=== PATIENT | female | born 1965 | race Caucasian/White ===

== ENCOUNTER 2018-12-02 07:46 | Inpatient (IN) | payer BC, OTHER ==
[2018-11-24 15:51] LABS: BASOPHILS # (AUTO) 0.1 X10'3 (0-0.2); EOSINOPHILS # (AUTO) 0.1 X10'3 (0-0.9); EOSINOPHILS % (AUTO) 1.4 % (0-6); LYMPHOCYTES # (AUTO) 2.5 X10'3 (1.1-4.8); LYMPHOCYTES % (AUTO) 30.8 % (21-51); MEAN CORPUSCULAR HEMOGLOBIN 26.7 PG (27.0-31.0); MEAN CORPUSCULAR HGB CONC 33.8 g/dL (33.0-36.5); MEAN PLATELET VOLUME 7.5 FL (7.4-10.4); MONOCYTES # (AUTO) 0.4 X10'3 (0-0.9); MONOCYTES % (AUTO) 5.6 % (2-12); NEUTROPHILS # (AUTO) 4.9 X10'3 (1.8-7.7); NEUTROPHILS % (AUTO) 61.2 % (42-75); PRE OP HEMATOCRIT 44.4 % (35.0-45.0); PRE OP PLATELET COUNT 349 X10'3 (140-440); RED BLOOD COUNT 5.62 X10'6 (4.20-5.60); RED CELL DISTRIBUTION WIDTH 13.9 % (11.5-14.5)
[2018-11-24 16:13] LABS: PRE OP PROTIME 10.1 SECONDS (9.0-12.0)
[2018-11-24 16:25] LABS: ALBUMIN 3.9 G/DL (3.4-5.0); ALBUMIN/GLOBULIN RATIO 1.1 (1.1-1.5); ALKALINE PHOSPHATASE 89 IU/L (46-116); BLOOD UREA NITROGEN 13 MG/DL (7-18); BUN/CREATININE RATIO 15.1 (6.6-38.0); CALCIUM 9.3 MG/DL (8.5-10.1); CHLORIDE 103 MMOL/L (99-107); CREATININE 0.86 MG/DL (0.40-0.90); PRE OP ALT 21 U/L (30-65); PRE OP ANION GAP 12 (8-16); PRE OP AST 14 U/L (10-37); PRE OP BILIRUB, TOTAL 0.5 MG/DL (0.0-1.0); PRE OP GLUCOSE 91 MG/DL (70-104); PRE OP POTASSIUM 3.9 MMOL/L (3.4-5.1); PRE OP SODIUM 140 MMOL/L (135-145); TOTAL CARBON DIOXIDE 24.6 MMOL/L (24-32); TOTAL PROTEIN 7.3 G/DL (6.4-8.2); eGFR 69 ML/MIN
[2018-12-02] VITALS (20 sets, daily range): BP systolic 86–138; BP diastolic 42–90
[~2018-12-02] VITALS: Ht 172.7 cm; Wt 97.1 kg
[~2018-12-02 07:46] MED LIST: CHOL400T14 PO; DULO-31 PO; IBUP-1594 PO; acetaminophen 325mg tablet PO ONE; cefazolin/dext.iso 2gm/50ml 100 ML IV ONE; famotidine 20mg tablet PO ONE; gabapentin 300mg capsule PO ONE; metoclopramide 5 mg/ml inj IV ONE; oxyCODONE SR 10mg (sust. release) tab -2 tabs (20mg) PO ONE; ringers solution, lacted 1,000 ML IV SCH; tranexamic acid inj. 1,000 MG in normal saline 100 ML IV ONE; vancomycin inj 1,500 MG in normal saline 300ml IV soln IV ONE
[2018-12-02] MEDS ORDERED: LIDOcaine 1% (10mg/ml) 2ml vial ONE (08:19)
[2018-12-02] MEDS ORDERED: ringers solution, lacted 1,000 ML IV SCH (08:44)
[2018-12-02] MEDS ORDERED: morphine 4 MG/ML inj SYRINge IV PRN ×2 (08:45)
[2018-12-02] MEDS ORDERED: ondansetron/PF 4mg/2ml inj IV PRN ×3 (08:45→14:40)
[2018-12-02] MEDS ORDERED: meperidine/PF 25mg/ml syringe IV PRN ×3 (08:45)
[2018-12-02] MEDS ORDERED: proCHLORperazine 10 MG/2 ml inj IV PRN (08:45)
[2018-12-02] MEDS ORDERED: vancomycin 1,000mg inj ONE (09:50)
[2018-12-02] MEDS ORDERED: ePHEDrine 50MG/ML INJ. ONE (10:35)
[2018-12-02] MEDS ORDERED: fentaNYL/PF 50MCG/1 ML 2ML syringe ONE (10:42)
[2018-12-02] MEDS ORDERED: MIDAZolam 1mg/ml 10ml vial ONE (10:42)
[2018-12-02] MEDS ORDERED: morphine /PF 1mg/ml 10ml inj. ONE (10:42)
[2018-12-02] MEDS: ceFAZolin 1000mg inj ONE ×2 (11:24→11:25)
[2018-12-02] MEDS ORDERED: phenylephrine 10mg/ml inj. ONE (11:38)
[2018-12-02] MEDS ORDERED: ROPIVAcaine 0.5% (5mg/ml) 30ml vial ONE ×2 (12:19→12:27)
[2018-12-02] MEDS ORDERED: bisacodyl 10mg suppository rectal RC PRN (12:45)
[2018-12-02] MEDS ORDERED: acetaminophen 325mg tablet PO PRN (12:45)
[2018-12-02] MEDS ORDERED: diphenhydrAMINE 25mg capsule PO PRN ×2 (12:45)
[2018-12-02] MEDS ORDERED: HYDROmorphone 1 mg/ml syringe IV PRN (12:45)
[2018-12-02] MEDS ORDERED: HYDROmorphone inj. 0.5 MG/0.5 ML DISP.SYRIN IV PRN (12:45)
[2018-12-02] MEDS ORDERED: magnesium hydroxide 30ml (MOM) UD suspension PO PRN (12:45)
--- NOTE | 2018-12-02 13:05 | NUR ---
Received from OR via BED , accompanied by Anesthesiologist and report given by Anesthesiolgist.PATIENT A&OX4, DENIES PAIN, V/S WNL, NEUROVASCULAR CHECKS INTACT, 18G PIV RUE , DRESSING TO RIGHT HIP CDI W/ COLD POWDER PACK AND W/ANNELISE AND W/ SCD ON. F/C DRAINING CLEAR YELLOW URINE. SENSATION L2.
--- NOTE | 2018-12-02 14:25 | NUR ---
PATIENT A&OX4, DENIES PAIN, V/S WNL, NEUROVASCULAR CHECKS INTACT, 18G PIV RUE , DRESSING TO RIGHT HIP CDI W/ COLD POWDER PACK AND W/ANNELISE AND W/ SCD ON. F/C DRAINING CLEAR YELLOW URINE. SENSATION L2. PATIENT TAKEN TO ORTHO WITH ALL BELONGINGS AND HOOKED UP TO MONITORS IN ROOM AND REPORT GIVEN TO FINISHED METAL REPAIRER WHO HAS TAKEN OVER PATIENT CARE.
[2018-12-02] MEDS ORDERED: naloxone 2mg/2ml inj 2 MG in normal saline 500ml IV soln 500 ML IV PRN (14:40)
[2018-12-02] MEDS ORDERED: diphenhydrAMINE 50 mg/ml inj IV PRN (14:40)
[2018-12-02] MEDS ORDERED: tranexamic acid inj. 1,000 MG in normal saline 100ml IV soln 100 ML IV ONE (15:45)
[2018-12-02] MEDS: gabapentin 300mg capsule PO SCH ×2 (16:17→20:45)
[2018-12-02] MEDS: ceFAZolin 1GM/D5W- ADD-VANTAGE 50 ML IV SCH ×2 (16:18→23:59)
[2018-12-02] MEDS: acetaminophen 325mg tablet PO SCH ×2 (16:18→20:45)
--- NOTE | 2018-12-02 17:26 | NUR ---
Was unable to hang tranexamic acid at the correct time due to pharmacy being late called [facility] and spoke to Nanda regarding this situation
--- NOTE | 2018-12-02 18:37 | NUR ---
Patient in room ORTHO 4013. I have received report from Joi MENDES and had the opportunity to ask questions and assume patient care.
[2018-12-02] MEDS: potassium cl 20mEq in 1/2 NS 1,000 ML IV SCH (18:42)
[2018-12-02] MEDS: enoxaparin 30mg/0.3ml syringe SQ SCH (19:51)
[2018-12-02] MEDS ORDERED: vancomycin/NS 1 GM ADD-VANTAGE 250 ML IV SCH (20:00)
[2018-12-02] MEDS: duloxetine 30mg CAPSULE.DR PO SCH (20:46)
[2018-12-02] MEDS: sennosides 8.6mg tablet PO SCH (20:46)
[2018-12-03 02:00] VITALS: BP 133/82
[2018-12-03] MEDS: acetaminophen 325mg tablet PO SCH ×4 (02:20→20:18)
[2018-12-03] MEDS: potassium cl 20mEq in 1/2 NS 1,000 ML IV SCH ×3 (04:26→19:21)
[2018-12-03] MEDS: oxyCODONE IR 5mg (immed. release) tablet PO PRN ×5 (05:23→21:29)
[2018-12-03 06:00] VITALS: BP 150/86
[2018-12-03] MEDS ORDERED: ROPIVACAINE IU ONE ×5 (06:00)
[2018-12-03] MEDS ORDERED: MORPHINE IU ONE ×5 (06:00)
[2018-12-03] MEDS ORDERED: [UNRECOGNIZED DRUG - OTHER] IU ONE ×5 (06:00)
[2018-12-03] MEDS ORDERED: KETOROLAC TROMETHAMINE IU ONE ×5 (06:00)
--- NOTE | 2018-12-03 06:30 | NUR ---
Patient in room ORTHO 4013. I have received report from Lima MENDES and had the opportunity to ask questions and assume patient care.
--- NOTE | 2018-12-03 06:32 | NUR ---
Problems reprioritized. Patient report given, questions answered & plan of care reviewed with Ember MENDES.
[2018-12-03] MEDS: gabapentin 300mg capsule PO SCH ×3 (07:54→20:19)
[2018-12-03] MEDS: cholecalciferol (vitamin D) 400 unit tablet PO SCH (07:54)
[2018-12-03] MEDS: enoxaparin 30mg/0.3ml syringe SQ SCH ×2 (07:55→20:18)
[2018-12-03] MEDS ORDERED: ibuprofen 200mg tablet PO SCH (08:00)
[2018-12-03 09:55] LABS: BASOPHILS # (AUTO) 0.1 X10'3 (0-0.2); BASOPHILS % (AUTO) 0.3 % (0-1); EOSINOPHILS % (AUTO) 0 % (0-6); HEMATOCRIT 40.5 % (35.0-45.0); HEMOGLOBIN 13.8 g/dl (12.0-16.0); LYMPHOCYTES # (AUTO) 0.9 X10'3 (1.1-4.8); LYMPHOCYTES % (AUTO) 5.7 % (21-51); MEAN CORPUSCULAR HEMOGLOBIN 27.2 PG (27.0-31.0); MEAN CORPUSCULAR VOLUME 80.1 FL (78-98); MONOCYTES # (AUTO) 0.9 X10'3 (0-0.9); MONOCYTES % (AUTO) 5.5 % (2-12); NEUTROPHILS # (AUTO) 14.8 X10'3 (1.8-7.7); NEUTROPHILS % (AUTO) 88.5 % (42-75); PLATELET COUNT 282 X10'3 (140-440); RED BLOOD COUNT 5.06 X10'6 (4.20-5.60); RED CELL DISTRIBUTION WIDTH 13.8 % (11.5-14.5); WHITE BLOOD COUNT 16.7 X10'3 (4.5-11.0)
[2018-12-03 10:00] VITALS: BP 109/64
[2018-12-03 10:14] LABS: ANION GAP 11 (8-16); CHLORIDE 103 MMOL/L (99-107); POTASSIUM 4.2 MMOL/L (3.5-5.1); SODIUM 138 MMOL/L (135-145); TOTAL CARBON DIOXIDE 24.3 MMOL/L (24-32)
[2018-12-03 11:24] LABS: PLATELET ESTIMATE NORMAL; TOTAL CELLS COUNTED 100
--- NOTE | 2018-12-03 15:24 | NUR ---
Joint replacement consult: Pt seen by TRAMAINE for written/verbal high protein ed. TRAMAINE reviewed high protein needs for wound healing, immune strength, high protein foods, and protein supplementation options. RD contact information provided in case of further questions. 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 Addendum: 12/03/18 at [address] Amended: Links added.
[2018-12-03 18:00] VITALS: BP 139/74
--- NOTE | 2018-12-03 18:12 | NUR ---
Problems reprioritized. Patient report given, questions answered & plan of care reviewed with Lima MENDES.
--- NOTE | 2018-12-03 18:19 | NUR ---
Patient in room ORTHO 4013. I have received report from Ember MENDES and had the opportunity to ask questions and assume patient care.
[2018-12-03] MEDS: celeCOXIB 100mg capsule PO SCH (20:18)
[2018-12-03] MEDS: duloxetine 30mg CAPSULE.DR PO SCH (20:19)
[2018-12-03] MEDS: sennosides 8.6mg tablet PO SCH (20:19)
[2018-12-03 22:00] VITALS: BP 124/74
[2018-12-04] MEDS: acetaminophen 325mg tablet PO SCH ×2 (02:12→09:00)
[2018-12-04] MEDS: oxyCODONE IR 5mg (immed. release) tablet PO PRN (05:25)
[2018-12-04 06:00] VITALS: BP 108/58
--- NOTE | 2018-12-04 06:26 | NUR ---
Problems reprioritized. Patient report given, questions answered & plan of care reviewed with Ember MENDES.
--- NOTE | 2018-12-04 06:30 | NUR ---
Patient in room ORTHO 4013. I have received report from Lima MENDES and had the opportunity to ask questions and assume patient care.
[2018-12-04] MEDS: enoxaparin 30mg/0.3ml syringe SQ SCH (08:00)
[2018-12-04] MEDS: celeCOXIB 100mg capsule PO SCH (08:59)
[2018-12-04] MEDS: gabapentin 300mg capsule PO SCH (08:59)
[2018-12-04] MEDS: cholecalciferol (vitamin D) 400 unit tablet PO SCH (09:00)
[2018-12-04 09:04] LABS: BASOPHILS # (AUTO) 0.1 X10'3 (0-0.2); BASOPHILS % (AUTO) 0.4 % (0-1); EOSINOPHILS # (AUTO) 0.2 X10'3 (0-0.9); EOSINOPHILS % (AUTO) 1.4 % (0-6); HEMATOCRIT 33.9 % (35.0-45.0); HEMOGLOBIN 11.7 g/dl (12.0-16.0); LYMPHOCYTES # (AUTO) 1.7 X10'3 (1.1-4.8); LYMPHOCYTES % (AUTO) 13.3 % (21-51); MEAN CORPUSCULAR HEMOGLOBIN 27.2 PG (27.0-31.0); MEAN CORPUSCULAR HGB CONC 34.5 g/dL (33.0-36.5); MEAN PLATELET VOLUME 7.6 FL (7.4-10.4); MONOCYTES % (AUTO) 7.8 % (2-12); NEUTROPHILS # (AUTO) 9.6 X10'3 (1.8-7.7); NEUTROPHILS % (AUTO) 77.1 % (42-75); PLATELET COUNT 257 X10'3 (140-440); RED BLOOD COUNT 4.29 X10'6 (4.20-5.60); RED CELL DISTRIBUTION WIDTH 13.9 % (11.5-14.5); WHITE BLOOD COUNT 12.5 X10'3 (4.5-11.0)
[2018-12-04] MEDS ORDERED: ASPI-1264 PO (09:32)
[2018-12-04] MEDS ORDERED: acetaminophen 325mg tablet PO PRN (12:45)
== END 2018-12-04 11:10 | disposition home or self-care (01) | DRG 470 ==
LOC: PAS IN 07:46 → EDSTATUS 11:00 → ORTHO 4S 14:30
PROVIDERS: ADMIT Orthopaedic Surgery; ATTEND Orthopaedic Surgery
PROC: 0SR906A Replacement of Right Hip Joint with Oxidized Zirconium on Polyethylene Synthetic Substitute, Uncemented, Open Approach (ICD-10-PCS; 2018-12-02)
PROC: 3E0T3BZ Introduction of Anesthetic Agent into Peripheral Nerves and Plexi, Percutaneous Approach (ICD-10-PCS; principal; 2018-12-02 10:40)
DX: M16.11 Unilateral primary osteoarthritis, right hip (principal); D62 Acute posthemorrhagic anemia; E66.9 Obesity, unspecified; F32.9 Major depressive disorder, single episode, unspecified; Z88.1 Allergy status to other antibiotic agents; Z88.8 Allergy status to other drugs, medicaments and biological substances; Z79.82 Long term (current) use of aspirin; Z90.710 Acquired absence of both cervix and uterus; Z86.14 Personal history of Methicillin resistant Staphylococcus aureus infection; Z68.32 Body mass index [BMI] 32.0-32.9, adult
CPT/HCPCS: 36415; 72170; 80051; 80053; 82948; 85025; 85610; 85730; 86885; 86900; 86901; 87070; 93005; 97110; 97116; 97161; 97530; A7000; C1758; C1776; C9250; G0378; J0171; J0690; J1650; J1885; J2250; J2274; J2370; J2405; J2765; J2795; J3010; J3370; J3490; J7030; J7120

== ENCOUNTER 2019-06-23 05:13 | Inpatient (IN) | payer BC ==
[2019-06-22 13:49] LABS: BASOPHILS # (AUTO) 0.1 X10'3 (0-0.2); BASOPHILS % (AUTO) 1.3 % (0-1); EOSINOPHILS # (AUTO) 0.1 X10'3 (0-0.9); EOSINOPHILS % (AUTO) 1.6 % (0-6); LYMPHOCYTES # (AUTO) 1.9 X10'3 (1.1-4.8); LYMPHOCYTES % (AUTO) 26.9 % (21-51); MEAN CORPUSCULAR HEMOGLOBIN 26.7 PG (27.0-31.0); MEAN CORPUSCULAR HGB CONC 33.4 g/dL (33.0-36.5); MEAN CORPUSCULAR VOLUME 79.9 FL (78-98); MONOCYTES # (AUTO) 0.4 X10'3 (0-0.9); MONOCYTES % (AUTO) 5.2 % (2-12); NEUTROPHILS # (AUTO) 4.6 X10'3 (1.8-7.7); PRE OP HEMATOCRIT 45.3 % (35.0-45.0); PRE OP HEMOGLOBIN 15.1 g/dL (12.0-16.0); PRE OP PLATELET COUNT 323 X10'3 (140-440); RED BLOOD COUNT 5.67 X10'6 (4.20-5.60); RED CELL DISTRIBUTION WIDTH 14.4 % (11.5-14.5)
[2019-06-22 14:00] LABS: ALBUMIN 3.9 G/DL (3.4-5.0); ALBUMIN/GLOBULIN RATIO 1.1 (1.1-1.5); ALKALINE PHOSPHATASE 99 IU/L (46-116); BLOOD UREA NITROGEN 11 MG/DL (7-18); BUN/CREATININE RATIO 13.4 (6.6-38.0); CALCIUM 9.3 MG/DL (8.5-10.1); CHLORIDE 107 MMOL/L (99-107); CREATININE 0.82 MG/DL (0.40-0.90); PRE OP ALT 30 U/L (30-65); PRE OP ANION GAP 10 (8-16); PRE OP AST 19 U/L (10-37); PRE OP BILIRUB, TOTAL 0.4 MG/DL (0.0-1.0); PRE OP GLUCOSE 91 MG/DL (70-104); PRE OP SODIUM 143 MMOL/L (135-145); TOTAL CARBON DIOXIDE 25.8 MMOL/L (24-32); TOTAL PROTEIN 7.6 G/DL (6.4-8.2); eGFR 73 ML/MIN
[~2019-06-23] VITALS: Ht 172.7 cm; Wt 100.0 kg
[2019-06-23] VITALS (18 sets, daily range): BP systolic 93–145; BP diastolic 47–87
[~2019-06-23 05:13] MED LIST changes: +ACET-75 PO; -CHOL400T14 PO; -DULO-31 PO; -IBUP-1594 PO; -acetaminophen 325mg tablet PO ONE; -cefazolin/dext.iso 2gm/50ml 100 ML IV ONE; -famotidine 20mg tablet PO ONE; -gabapentin 300mg capsule PO ONE; -metoclopramide 5 mg/ml inj IV ONE; -oxyCODONE SR 10mg (sust. release) tab -2 tabs (20mg) PO ONE; -ringers solution, lacted 1,000 ML IV SCH; -tranexamic acid inj. 1,000 MG in normal saline 100 ML IV ONE; -vancomycin inj 1,500 MG in normal saline 300ml IV soln IV ONE
[2019-06-23] MEDS ORDERED: famotidine 20mg tablet PO ONE (05:30)
[2019-06-23] MEDS ORDERED: metoclopramide 5 mg/ml inj IV ONE (05:30)
[2019-06-23] MEDS ORDERED: vancomycin inj 1,500 MG in normal saline 300ml IV soln IV ONE (05:30)
[2019-06-23] MEDS ORDERED: oxyCODONE SR 10mg (sust. release) tab -2 tabs (20mg) PO ONE (05:30)
[2019-06-23] MEDS ORDERED: tranexamic acid inj. 1,000 MG in normal saline 100 ML IV ONE (05:30)
[2019-06-23] MEDS ORDERED: gabapentin 300mg capsule PO ONE (05:30)
[2019-06-23] MEDS ORDERED: acetaminophen 325mg tablet PO ONE (05:30)
[2019-06-23] MEDS ORDERED: cefazolin/dext.iso 2gm/50ml 50 ML IV ONE (05:30)
[2019-06-23] MEDS ORDERED: ringers solution, lacted 1,000 ML IV SCH ×2 (05:30→09:18)
[2019-06-23] MEDS ORDERED: LIDOcaine 1% (10mg/ml) 2ml vial ONE (05:49)
[2019-06-23] MEDS ORDERED: morphine 10mg/ml inj. ONE (06:50)
[2019-06-23] MEDS ORDERED: ROPIVAcaine 0.5% (5mg/ml) 30ml vial ONE (06:50)
[2019-06-23] MEDS ORDERED: ceFAZolin 1000mg inj ONE (06:50)
[2019-06-23] MEDS ORDERED: vancomycin 1,000mg inj ONE (06:50)
[2019-06-23] MEDS ORDERED: cloNIDine hcl/PF 100mcg/ml inj ONE (06:50)
[2019-06-23] MEDS ORDERED: epiNEPHrine 1 mg/ml inj ONE (06:50)
[2019-06-23] MEDS ORDERED: Thrombin (Bovine) 5,000 unit vial TP ONE (06:51)
[2019-06-23] MEDS ORDERED: fentaNYL/PF 50MCG/1 ML 2ML syringe ONE (07:22)
[2019-06-23] MEDS ORDERED: morphine /PF 1mg/ml 10ml inj. ONE (07:22)
[2019-06-23] MEDS ORDERED: MIDAZolam 5mg/5ml vial ONE (07:23)
[2019-06-23] MEDS ORDERED: diphenhydrAMINE 50 mg/ml inj ONE (07:49)
[2019-06-23] MEDS ORDERED: LIDOcaine 1%/PF 5ML 10 MG/ML VIAL ONE (08:21)
[2019-06-23] MEDS ORDERED: propofol inj 20 ML IV ONE ×2 (08:21→09:04)
[2019-06-23] MEDS ORDERED: calcium chloride 100 MG/1 ML inj IV ONE (09:02)
[2019-06-23] MEDS ORDERED: BUPIVAcaine/PF 7.5mg/ml (0.75%) 10ml vial ONE (09:04)
[2019-06-23] MEDS ORDERED: naloxone 2mg/2ml inj 2 MG in normal saline 500ml IV soln 500 ML IV PRN (09:18)
[2019-06-23] MEDS ORDERED: proCHLORperazine 10 MG/2 ml inj IV PRN (09:20)
[2019-06-23] MEDS ORDERED: meperidine/PF 25mg/ml syringe IV PRN ×3 (09:20)
[2019-06-23] MEDS ORDERED: morphine 4 MG/ML inj SYRINge IV PRN ×2 (09:20)
[2019-06-23] MEDS ORDERED: ondansetron/PF 4mg/2ml inj IV PRN ×3 (09:20→10:35)
[2019-06-23] MEDS ORDERED: diphenhydrAMINE 50 mg/ml inj IV PRN (09:20)
[2019-06-23] MEDS ORDERED: HYDROmorphone 1 mg/ml syringe IV PRN (10:35)
[2019-06-23] MEDS ORDERED: bisacodyl 10mg suppository rectal RC PRN (10:35)
[2019-06-23] MEDS ORDERED: magnesium hydroxide 30ml (MOM) UD suspension PO PRN (10:35)
[2019-06-23] MEDS ORDERED: HYDROmorphone inj. 0.5 MG/0.5 ML DISP.SYRIN IV PRN (10:35)
[2019-06-23] MEDS ORDERED: diphenhydrAMINE 25mg capsule PO PRN ×2 (10:35)
[2019-06-23] MEDS ORDERED: acetaminophen 325mg tablet PO PRN (10:35)
--- NOTE | 2019-06-23 10:40 | NUR ---
Received from OR via BED , accompanied by Anesthesiologist DR LAROSE and report given by Anesthesiolgist. PATIENT WAKING UP, DENIES PAIN, V/S WNL, NEUROVASCULAR CHECKS INTACT, 18G PIV LUE , ANNELISE DRESSING TO LEFT HIP CDI W/ COLD POWDER PACK AND W/ SCD ON. F/C DRAINING CLEAR YELLOW URINE. SENSATION T-10 .
--- NOTE | 2019-06-23 11:00 | NUR ---
Patient in room ORTHO 4022. I have received report from Ramiro in recovery and had the opportunity to ask questions and assume patient care.
--- NOTE | 2019-06-23 11:40 | NUR ---
PATIENT A&OX4, DENIES PAIN, V/S WNL, NEUROVASCULAR CHECKS INTACT, 18G PIV LUE , ANNELISE DRESSING TO LEFT HIP CDI W/ COLD POWDER PACK AND W/ SCD ON. F/C DRAINING CLEAR YELLOW URINE. SENSATION T-10, WEDGE PILLOW, TELE ON, PATIENT TAKEN TO ORTHO WITH ALL BELONGINGS AND HOOKED UP TO MONITORS IN ROOM AND REPORT GIVEN TO NANOTECHNICIAN WHO HAS TAKEN OVER PATIENT CARE.
[2019-06-23] MEDS: gabapentin 300mg capsule PO SCH ×2 (13:50→20:54)
[2019-06-23] MEDS: acetaminophen 325mg tablet PO SCH ×2 (13:51→20:55)
[2019-06-23] MEDS ORDERED: tranexamic acid inj. 1,000 MG in normal saline 100ml IV soln 100 ML IV ONE (14:00)
[2019-06-23] MEDS: potassium cl 20mEq in 1/2 NS 1,000 ML IV SCH ×2 (15:19→18:34)
[2019-06-23] MEDS: ceFAZolin 1GM/D5W- ADD-VANTAGE 50 ML IV SCH (15:27)
--- NOTE | 2019-06-23 18:12 | NUR ---
Problems reprioritized. Patient report given, questions answered & plan of care reviewed with Lorie.
[2019-06-23] MEDS ORDERED: vancomycin/NS 1 GM ADD-VANTAGE 250 ML IV SCH (20:00)
[2019-06-23] MEDS ORDERED: sennosides 8.6mg tablet PO SCH (21:00)
[2019-06-24] MEDS: ceFAZolin 1GM/D5W- ADD-VANTAGE 50 ML IV SCH (00:01)
[2019-06-24 02:00] VITALS: BP 113/68
[2019-06-24] MEDS: acetaminophen 325mg tablet PO SCH ×3 (02:20→14:25)
[2019-06-24] MEDS: oxyCODONE IR 5mg (immed. release) tablet PO PRN ×4 (02:20→14:25)
[2019-06-24] MEDS: potassium cl 20mEq in 1/2 NS 1,000 ML IV SCH ×2 (02:34→09:59)
[2019-06-24 03:25] VITALS: BP 113/68
[2019-06-24 05:20] LABS: BASOPHILS # (AUTO) 0.1 X10'3 (0-0.2); BASOPHILS % (AUTO) 0.6 % (0-1); EOSINOPHILS # (AUTO) 0.2 X10'3 (0-0.9); EOSINOPHILS % (AUTO) 1.5 % (0-6); HEMATOCRIT 35.7 % (35.0-45.0); HEMOGLOBIN 11.8 g/dl (12.0-16.0); LYMPHOCYTES # (AUTO) 1.1 X10'3 (1.1-4.8); LYMPHOCYTES % (AUTO) 9.2 % (21-51); MEAN CORPUSCULAR HEMOGLOBIN 26.6 PG (27.0-31.0); MEAN CORPUSCULAR VOLUME 80.7 FL (78-98); MEAN PLATELET VOLUME 7.8 FL (7.4-10.4); MONOCYTES # (AUTO) 1.4 X10'3 (0-0.9); MONOCYTES % (AUTO) 11.7 % (2-12); PLATELET COUNT 243 X10'3 (140-440); RED BLOOD COUNT 4.42 X10'6 (4.20-5.60); RED CELL DISTRIBUTION WIDTH 14.4 % (11.5-14.5); WHITE BLOOD COUNT 11.6 X10'3 (4.5-11.0)
[2019-06-24 05:31] LABS: ANION GAP 9 (8-16); CHLORIDE 105 MMOL/L (99-107); POTASSIUM 5.9 MMOL/L (3.5-5.1); SODIUM 137 MMOL/L (135-145)
[2019-06-24 06:00] VITALS: BP 132/80
--- NOTE | 2019-06-24 06:37 | NUR ---
Patient in room ORTHO 4022. I have received report from Noel MENDES and had the opportunity to ask questions and assume patient care.
[2019-06-24] MEDS: gabapentin 300mg capsule PO SCH ×2 (07:03→14:25)
[2019-06-24] MEDS ORDERED: enoxaparin 30mg/0.3ml syringe SQ SCH (08:00)
[2019-06-24] MEDS ORDERED: ASPI-1264 PO (09:24)
[2019-06-24 10:00] VITALS: BP 130/81
[2019-06-24 14:00] VITALS: BP 151/82
--- NOTE | 2019-06-24 15:15 | NUR ---
Safe DC. left hospital with mother in personnel vehicle. all personnel belongings with Pt.
[2019-06-24] MEDS ORDERED: celeCOXIB 100mg capsule PO SCH (20:00)
[2019-06-25] MEDS ORDERED: acetaminophen 325mg tablet PO PRN (10:35)
== END 2019-06-24 15:20 | disposition home or self-care (01) | DRG 470 ==
LOC: PAS IN 05:13 → EDSTATUS 07:30 → ORTHO 4S 11:34
PROVIDERS: ADMIT Orthopaedic Surgery; ATTEND Orthopaedic Surgery
PROC: 0SRB06A Replacement of Left Hip Joint with Oxidized Zirconium on Polyethylene Synthetic Substitute, Uncemented, Open Approach (ICD-10-PCS; principal; 2019-06-23 07:49)
DX: M16.12 Unilateral primary osteoarthritis, left hip (principal); D62 Acute posthemorrhagic anemia; E66.9 Obesity, unspecified; Z68.33 Body mass index [BMI] 33.0-33.9, adult; Z88.8 Allergy status to other drugs, medicaments and biological substances; Z79.899 Other long term (current) drug therapy
CPT/HCPCS: Z7506; Z7508; 36415; 72170; 73502; 80051; 80053; 82948; 85025; 86885; 86900; 86901; 87081; 93005; 97110; 97116; 97161; 97530; 97535; A4215; A4618; A7000; C1758; C1776; G0378; J0171; J0690; J0735; J1170; J1200; J1650; J2001; J2250; J2270; J2704; J2765; J2795; J3010; J3370; J3480; J3490; J7030; J7120

== ENCOUNTER 2020-02-16 03:46 | Emergency (ER) | payer BC ==
[~2020-02-16] VITALS: Ht 172.7 cm; Wt 102.3 kg
[2020-02-16] VITALS (8 sets, daily range): BP systolic 127–139; BP diastolic 73–84
[2020-02-16] MEDS ORDERED: aspirin 81mg tab.chew PO ONE (03:50)
[2020-02-16 04:04] LABS: BASOPHILS # (AUTO) 0.1 X10'3 (0-0.2); BASOPHILS % (AUTO) 0.9 % (0-1); EOSINOPHILS # (AUTO) 0.2 X10'3 (0-0.9); EOSINOPHILS % (AUTO) 2.4 % (0-6); HEMATOCRIT 43.7 % (35.0-45.0); HEMOGLOBIN 14.6 g/dl (12.0-16.0); LYMPHOCYTES # (AUTO) 2.2 X10'3 (1.1-4.8); LYMPHOCYTES % (AUTO) 27.5 % (21-51); MEAN CORPUSCULAR HEMOGLOBIN 26.3 PG (27.0-31.0); MEAN CORPUSCULAR HGB CONC 33.3 g/dL (33.0-36.5); MEAN PLATELET VOLUME 7.5 FL (7.4-10.4); MONOCYTES # (AUTO) 0.4 X10'3 (0-0.9); MONOCYTES % (AUTO) 5.5 % (2-12); NEUTROPHILS # (AUTO) 5.1 X10'3 (1.8-7.7); NEUTROPHILS % (AUTO) 63.7 % (42-75); PLATELET COUNT 312 X10'3 (140-440); RED BLOOD COUNT 5.53 X10'6 (4.20-5.60); RED CELL DISTRIBUTION WIDTH 14.3 % (11.5-14.5); WHITE BLOOD COUNT 8.1 X10'3 (4.5-11.0)
[2020-02-16 04:14] LABS: D-DIMER 0.54 MG/L FEU (0-0.50)
[2020-02-16 04:18] LABS: ALANINE AMINOTRANSFERASE 41 U/L (12-78); ALBUMIN 3.8 G/DL (3.4-5.0); ALBUMIN/GLOBULIN RATIO 1.1 (1.1-1.5); ALKALINE PHOSPHATASE 114 IU/L (46-116); ANION GAP 8 (8-16); ASPARTATE AMINO TRANSFERASE 21 U/L (10-37); BILIRUBIN,TOTAL 0.4 MG/DL (0.1-1.0); BLOOD UREA NITROGEN 17 MG/DL (7-18); BUN/CREATININE RATIO 17.5 (6.6-38.0); CALCIUM 8.9 MG/DL (8.5-10.1); CHLORIDE 108 MMOL/L (99-107); CREATININE 0.97 MG/DL (0.40-0.90); GLUCOSE 159 MG/DL (70-104); POTASSIUM 3.9 MMOL/L (3.5-5.1); SODIUM 142 MMOL/L (135-145); TOTAL CARBON DIOXIDE 26.2 MMOL/L (24-32); TOTAL PROTEIN 7.2 G/DL (6.4-8.2); eGFR 60 ML/MIN
[2020-02-16 04:26] LABS: MAGNESIUM 2.2 MG/DL (1.5-2.4)
[2020-02-16] MEDS ORDERED: iohexol 350MG/ML 100ml bottle IV ONE (04:26)
--- NOTE | 2020-02-16 04:57 | NUR ---
3 hour Troponin due at 0700
--- NOTE | 2020-02-16 07:43 | NUR ---
[facility] in [facility] - 02/16/20 at 0920 by WADE PT OUT TO STRESS TEST VIA WHEELCHAIR WITH TECH
[2020-02-16] MEDS ORDERED: nitroGLYCERIN 0.4mg SUBLingual tab SL PRN (07:50)
[2020-02-16] MEDS ORDERED: aminophylline 250mg/10ml inj. IV PRN (07:50)
[2020-02-16] MEDS ORDERED: metoprolol tartrate 1mg/ml inj IV PRN (07:50)
[2020-02-16] MEDS ORDERED: regadenoson 0.4mg/5ml syringe IV ONE (07:55)
--- NOTE | 2020-02-16 09:08 | NUR ---
breaking primary RN, pt sitting at side of bed, VSS, awaiting Nuc Med testing
--- NOTE | 2020-02-16 09:20 | NUR ---
pt out to nuc med via wheelchair with nuc med tech
--- NOTE | 2020-02-16 11:05 | NUR ---
pt returns from [facility]
== END 2020-02-16 11:52 | disposition home or self-care (01) ==
LOC: ER 03:46
DX: R07.89 Other chest pain (principal); M25.512 Pain in left shoulder; Z90.49 Acquired absence of other specified parts of digestive tract; Z98.890 Other specified postprocedural states; Z79.899 Other long term (current) drug therapy
CPT/HCPCS: 36415; 71045; 71275; 78452; 80053; 83735; 83880; 84484; 85025; 85379; 93005; 93017; 99285; A9500; J2785; Q9967